=== PATIENT | female | born 1965 ===

== ENCOUNTER 2018-12-11 11:48 | Inpatient (IN) ==
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
[~2018-12-11 11:48] MED LIST: CEFAZOLIN 2000MG 2,000 MG/15 ML SYR IV SCH; LACTATED RINGER'S 1,000 ML IV SCH; LR 15ML/HR IV SCH
--- NOTE | 2018-12-11 12:52 | History & Physical Bridge Note ---
Date of Service December 11, 2018 History & Physical Bridge Note I have examined the patient, reviewed the History & Physical and in the interval since the performance of the History & Physical I have noted the following changes of clinical significance: lovenox stopped 24 hrs ago. no changes noted
[2018-12-11] MEDS ORDERED: DEXAMETHASONE SOD INJ 4 MG/ML VIAL ONE (14:10)
[2018-12-11] MEDS ORDERED: PROPOFOL IV EMULSION 10 MG/ML 20 ML VIAL IV ONE (14:10)
[2018-12-11] MEDS ORDERED: ONDANSETRON INJ 2 MG/ML 2 ML VIAL ONE (14:10)
[2018-12-11] MEDS ORDERED: LIDOCAINE HCL 2% 2 ML VIAL/AMP(20MG/ML) INFIL ONE (14:10)
[2018-12-11] MEDS ORDERED: fentaNYL citrate 100 MCG/2 ML VIAL ONE (14:11)
[2018-12-11] MEDS ORDERED: MIDAZOLAM HCL 1 MG/ML 2ML VIAL ONE (14:11)
[2018-12-11] MEDS ORDERED: LIDOCAINE HCL 1% 20 ML VIAL ONE (14:29)
[2018-12-11] MEDS ORDERED: BUPIVACAINE 0.5 % 5 MG/1 ML MPF 30ML VIAL ONE (14:30)
[2018-12-11] MEDS ORDERED: BACITRACIN INJ 50,000 UNIT VIAL ONE (14:30)
[2018-12-11] MEDS ORDERED: ePHEDrine sulfate 50 MG/ML AMP IV PRN (15:25)
[2018-12-11] MEDS ORDERED: ATROPINE SULFATE 0.1 MG/ML 10ML SYR IV PRN (15:25)
[2018-12-11] MEDS ORDERED: PROMETHAZINE HCL 12.5 MG in SODIUM CHLORIDE 0.9% 50 ML IV PRN (15:25)
[2018-12-11] MEDS ORDERED: HYDROmorphone INJ 2 MG/ML SYR/VIAL IV PRN (15:25)
[2018-12-11] MEDS ORDERED: COLLAGENASE OINT 30 GM TUBE EXT STA (16:29)
[2018-12-11] MEDS: fentaNYL citrate 100 MCG/2 ML VIAL IV PRN ×2 (16:57→17:02)
[2018-12-11] MEDS: ONDANSETRON INJ 2 MG/ML 2 ML VIAL IV PRN ×2 (16:57→17:09)
--- NOTE | 2018-12-11 16:59 | Operative Report ---
Post Operative Report Pre & Post Diagnosis Operation Date: 12/11/18 14:00 Pre-Op Diagnosis: Left Leg Wound Post-Op Diagnosis: Left Leg Wound I identified the patient and participated in the time-out.: Yes Procedure Operation Date: 12/11/18 14:00 Actual Procedures p Left Leg Irrigation and Debridement, Possible Wound Vac(Left) - Guero Nelson MD Surgeon Guero Nelson MD Interrelated Special Education Teacher Hemant Estimated Blood Loss 15 Findings Consistent with Post-Op Diagnosis Specimens None Complications none Disposition Accompanied Patient To Recovery: Yes Disposition: Recovery Room Description of Procedure Supine, standard prep and drape, Time out Left Leg Irrigation and Debridement, Wound Vac Please see Dr Nelson's op notes for specific details I was present throughout the case, assisted for splint application and transferred the patient to PACU in stable condition I attest to the content of the Intraoperative Record and any orders documented therein. Any exceptions are noted below.
[2018-12-11] MEDS ORDERED: HYDROmorphone INJ 1 MG/ML SYRINGE ONE (17:07)
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
--- NOTE | 2018-12-11 17:23 | Anesthesiology Progress Note ---
Date of Service December 11, 2018 Anesthesia Post Procedure Vital Signs Vital Signs: Temp Pulse Pulse Resp BP Pulse Ox 12/11/18 17:20 85 16 154/85 H 96 12/11/18 17:10 99 H 16 136/91 93 12/11/18 17:00 89 16 155/90 H 100 12/11/18 16:53 36.3 C L 100 H 20 140/107 H 100 12/11/18 12:32 36.7 C 84 20 122/70 98 Pain Intensity Left Foot: Pain Intensity: 5 Transfer of Care Handoff Completed per policy Notes Mental Status: alert / awake / arousable and participated in evaluation Patient Amnestic to Procedure: Yes Nausea / Vomiting: adequately controlled Pain: adequately controlled Airway Patency, RR, SpO2: stable & adequate BP & HR: stable & adequate Hydration State: stable & adequate Anesthetic Complications: no major complications apparent and Pt Satisfied with anesthetic care
[2018-12-11] MEDS ORDERED: DiphenhydrAMINE HCL 50 MG/ML VIAL IV PRN (17:44)
[2018-12-11] MEDS ORDERED: HYDROmorphone INJ 0.5 MG/0.5 ML SYR IV PRN (17:44)
[2018-12-11] MEDS ORDERED: METOCLOPRAMIDE HCL INJ 5 MG/ML 2 ML VIAL IV PRN (17:44)
[2018-12-11] MEDS ORDERED: MAGNESIUM HYDROXIDE SUSP 30 ML UDC PO PRN (17:44)
[2018-12-11] MEDS ORDERED: LORazepam 0.5 MG TAB PO PRN (17:44)
[2018-12-11] MEDS ORDERED: BISACODYL 10 MG SUPP PR PRN (17:44)
[2018-12-11] MEDS ORDERED: NALOXONE HCL 0.4 MG/1 ML VIAL/CARP IV PRN (17:44)
[2018-12-11] MEDS: SODIUM CHLORIDE 0.9% 1000ML 1,000 ML IV SCH (18:47)
[2018-12-11] MEDS: KETOROLAC 30 MG/ML VIAL IV PRN (18:47)
[2018-12-11] MEDS: OXYCODONE HCL IR 5 MG TAB (IMMEDIATE RELEASE) PO PRN ×2 (19:24→23:24)
[2018-12-11] MEDS: FLUTICASONE/SALMETEROL 100/50 (ADVAIR) 14 PUFF/1 INHALER INH SCH (20:49)
[2018-12-11] MEDS: ACETAMINOPHEN 500 MG TAB PO SCH (20:49)
[2018-12-11] MEDS: SENNA 8.6 MG TAB PO SCH (20:49)
[2018-12-11] MEDS: GABAPENTIN 300 MG CAP PO SCH (20:49)
[2018-12-11] MEDS: FERROUS SULFATE 325 MG TAB PO SCH (20:50)
[2018-12-11] MEDS: BACLOFEN 10 MG TAB PO SCH (20:50)
[2018-12-11] MEDS: DOCUSATE SODIUM 100 MG CAP PO SCH (20:50)
[2018-12-11] MEDS: NYSTATIN OINT 15 GM TUBE EXT SCH (20:50)
[2018-12-11] MEDS: TRAMADOL HCL 50 MG TABLET PO PRN (21:48)
[2018-12-11] MEDS: CEFAZOLIN 1000MG 1,000 MG/7.5 ML SYR IV SCH (21:56)
[2018-12-12] MEDS: TRAMADOL HCL 50 MG TABLET PO PRN ×2 (02:40→08:00)
[2018-12-12] MEDS: OXYCODONE HCL IR 5 MG TAB (IMMEDIATE RELEASE) PO PRN ×4 (04:32→23:55)
[2018-12-12] MEDS: CEFAZOLIN 1000MG 1,000 MG/7.5 ML SYR IV SCH (06:14)
[2018-12-12] MEDS: SODIUM CHLORIDE 0.9% 1000ML 1,000 ML IV SCH (06:23)
--- NOTE | 2018-12-12 08:12 | Anesthesiology Progress Note ---
Date of Service December 12, 2018 Anesthesia Post Procedure Vital Signs Vital Signs: Temp Pulse Pulse Resp BP Pulse Ox 12/12/18 07:52 122/74 12/12/18 07:50 36.8 C 75 16 104/61 95 12/12/18 02:37 36.8 C 86 14 108/68 95 12/11/18 23:17 36.7 C 82 14 115/73 96 12/11/18 21:30 36.5 C 78 17 107/68 98 12/11/18 18:42 36.7 C 74 18 137/83 96 12/11/18 18:19 87 15 128/83 99 12/11/18 17:53 36.8 C 88 16 159/89 H 98 12/11/18 17:30 36.4 C L 91 H 16 142/86 H 96 12/11/18 17:20 85 16 154/85 H 96 12/11/18 17:10 99 H 16 136/91 93 12/11/18 17:00 89 16 155/90 H 100 12/11/18 16:53 36.3 C L 100 H 20 140/107 H 100 12/11/18 12:32 36.7 C 84 20 122/70 98 Pain Intensity Left Foot: Pain Intensity: 5 Left Leg: Pain Intensity: 7 Notes Mental Status: alert / awake / arousable and participated in evaluation Nausea / Vomiting: adequately controlled Pain: adequately controlled Airway Patency, RR, SpO2: stable & adequate BP & HR: stable & adequate Hydration State: stable & adequate
[2018-12-12] MEDS: FLUTICASONE/SALMETEROL 100/50 (ADVAIR) 14 PUFF/1 INHALER INH SCH ×2 (09:17→20:35)
[2018-12-12] MEDS: DOCUSATE SODIUM 100 MG CAP PO SCH ×2 (09:18→20:36)
[2018-12-12] MEDS: GABAPENTIN 300 MG CAP PO SCH ×3 (09:19→20:36)
[2018-12-12] MEDS: MULTIVITAMIN TAB PO SCH (09:19)
[2018-12-12] MEDS: BACLOFEN 10 MG TAB PO SCH ×3 (09:19→20:36)
[2018-12-12] MEDS: FERROUS SULFATE 325 MG TAB PO SCH ×2 (09:19→20:36)
[2018-12-12] MEDS: LISINOPRIL 10 MG TAB PO SCH (09:20)
[2018-12-12] MEDS: ACETAMINOPHEN 500 MG TAB PO SCH ×3 (09:20→20:37)
[2018-12-12] MEDS: ENOXAPARIN INJ 30 MG/0.3 ML SYR SQ SCH ×2 (09:22→20:37)
[2018-12-12] MEDS: NYSTATIN OINT 15 GM TUBE EXT SCH ×3 (09:24→20:35)
--- NOTE | 2018-12-12 10:46 | Progress Note ---
DATE: 12/12/2018 She is resting comfortably in bed. Did not get much sleep. Otherwise, no significant complaint. She did have some itching of her face may be related to the narcotics and will make sure she has Benadryl. She did have a concern about her blood pressure medication. The lisinopril has been making her cough. We will consult medicine to see if they can recommend a different medicine to address her blood pressure without the side effect. The wound VAC dressing and splint all intact. Clean and dry. The VAC is overlying part of her dorsalis pedis and I cannot really feel it, but she has capillary refill less than 2 seconds in all toes. She cannot really extend her toes. She can dorsiflex her ankle slightly in the splint. She can plantarflex her toes and seems to have good strength there. Sensation is intact. IMPRESSION: 1. Vitamin D deficiency. 2. Left leg wound status post grade 3 open tibia fracture, tib-fib fracture. 3. Anemia. 4. History of tobacco use. PLAN: Findings discussed. Surgical results reviewed. Plan is for now to continue admission. Continue wound VAC with elevation. Keep all limbs moving. She may partial weightbear with walker for bathroom. Remove wound VAC on Monday. I will touch base with my colleagues at [facility] regarding her care. Continue Lovenox for DVT prophylaxis.
[2018-12-12] MEDS: ONDANSETRON INJ 2 MG/ML 2 ML VIAL IV PRN (10:49)
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
[2018-12-12] MEDS ORDERED: HydrALAZINE HCL 20 MG/ML VIAL IV PRN (11:30)
[2018-12-12] MEDS: KETOROLAC 30 MG/ML VIAL IV PRN ×2 (11:51→17:13)
[2018-12-12] MEDS: COLLAGENASE OINT 30 GM TUBE EXT SCH (15:15)
[2018-12-12] MEDS: SENNA 8.6 MG TAB PO SCH (20:36)
[2018-12-13] MEDS: OXYCODONE HCL IR 5 MG TAB (IMMEDIATE RELEASE) PO PRN ×2 (05:05→20:23)
[2018-12-13 05:36] LABS: Hematocrit (blood only) 30.8 % (37-47); Hemoglobin 9.7 g/dL (12.0-16.0); Mean Corpuscular Hemoglobin 30.9 pg (25-34); Mean Corpuscular Hgb Conc 31.5 g/dL (32-36); Mean Corpuscular Volume 98.1 fL (80-100); Mean Platelet Volume 10.6 fL (7.4-10.4); Platelet Count 262 K/uL (130-400); RDW Standard Deviation 53.6 fL (36.4-46.3); Red Blood Count 3.14 M/uL (4.2-5.4)
[2018-12-13] MEDS: TRAMADOL HCL 50 MG TABLET PO PRN (08:15)
[2018-12-13] MEDS: LISINOPRIL 10 MG TAB PO SCH (08:21)
[2018-12-13] MEDS: DOCUSATE SODIUM 100 MG CAP PO SCH ×2 (08:22→20:23)
[2018-12-13] MEDS: GABAPENTIN 300 MG CAP PO SCH ×3 (08:22→20:23)
[2018-12-13] MEDS: ACETAMINOPHEN 500 MG TAB PO SCH ×3 (08:22→20:24)
[2018-12-13] MEDS: FLUTICASONE/SALMETEROL 100/50 (ADVAIR) 14 PUFF/1 INHALER INH SCH ×2 (08:22→20:24)
[2018-12-13] MEDS: BACLOFEN 10 MG TAB PO SCH ×3 (08:22→20:24)
[2018-12-13] MEDS: MULTIVITAMIN TAB PO SCH (08:22)
[2018-12-13] MEDS: FERROUS SULFATE 325 MG TAB PO SCH ×2 (08:22→20:24)
[2018-12-13] MEDS: NYSTATIN OINT 15 GM TUBE EXT SCH ×3 (08:23→20:24)
[2018-12-13] MEDS: COLLAGENASE OINT 30 GM TUBE EXT SCH (08:23)
[2018-12-13] MEDS: ENOXAPARIN INJ 30 MG/0.3 ML SYR SQ SCH ×2 (08:23→20:25)
[2018-12-13] MEDS: ONDANSETRON INJ 2 MG/ML 2 ML VIAL IV PRN (09:03)
--- NOTE | 2018-12-13 13:29 | Hospitalist Progress Note ---
Date of Service December 13, 2018 Assessment & Plan (1) HTN (hypertension): Discontinued lisinopril as per patient wishes and does not appear to need this at least in the short term given inpatient blood pressures. Stopped on discharge tab. Agree with hydralazine if blood pressure temporarily high while admitted but suppose she will need this. Follow up with PCP for ongoing management. Post-op labs reviewed Hgb 11.5 -> 9.7 (without tachycardia or hypotension), not concerning. No further medical needs identified. Thank you for the consult. We will sign off at this time. (2) Moderate asthma: No current exacerbation. Continue Advair in replacement for Asmanex inhaler for maintenance. (3) Open fracture of tibia and fibula: (4) Wound, open, knee, lower leg, or ankle with tendon involvement: Subjective Admission here for left leg debridement by Dr Nelson from outpatient clinic after poor skin viability noted s/p IM nail placed for open tib/fib fracture at outside facility following POD#1 left leg debridement. Patient reports doing well after this operation. Pain well controlled. Review of Systems Review of Systems: All systems reviewed & are unremarkable except as noted in HPI & below Physical Exam Constitutional: WD/WN, vitals as above Eyes: + anicteric sclerae; normal pupil size ENMT: external ear and nose normal, oropharynx normal Neck: normal visual inspection and trachea midline Respiratory: normal respiratory effort, lungs clear to auscultation Cardiovascular: RRR, no murmur, no edema Gastrointestinal (Abdomen): Inspection/Auscultation: normal bowel sounds Percussion/Palpation: abdomen soft; abdomen nontender, no guarding and abdomen not rigid Musculoskeletal: Left leg in brace, elevated on foot stall, not assessed Skin: no rashes, warm and dry Neurologic: moves all extremities (left leg in brace not examined) and awake; no focal motor deficits Psychiatric: A+Ox3, euthymic affect Results & Data Vital Signs (Past 12 Hours) Vital Signs Temp Pulse Resp BP Pulse Ox 12/13/18 07:27 98.8 F 87 17 135/82 95 PG Care Time/CCT Total # of Minutes Spent Total Time Spent with Patient: Total time spent is greater than 50% in coordination of care (as documented) at patient's floor/unit and/or counseling patient: (1) Moderate asthma Asthma complication type: uncomplicated Asthma persistence: persistent Qualified Code(s): J45.40 - Moderate persistent asthma, uncomplicated (2) Open fracture of tibia and fibula Encounter type: sequela Laterality: left Open fracture type: open type III Qualified Code(s): S82.202S - Unspecified fracture of shaft of left tibia, sequela; S82.402S - Unspecified fracture of shaft of left fibula, sequela (3) Wound, open, knee, lower leg, or ankle with tendon involvement Encounter type: sequela Laterality: left Qualified Code(s): S81.002S - Unspecified open wound, left knee, sequela; S81.802S - Unspecified open wound, left lower leg, sequela; S91.002S - Unspecified open wound, left ankle, sequela; S86.802S - Unspecified injury of other muscle(s) and tendon(s) at lower leg level, left leg, sequela (4) HTN (hypertension) Hypertension type: essential hypertension Qualified Code(s): I10 - Essential (primary) hypertension
--- NOTE | 2018-12-13 17:07 | Orthopedic Progress Note ---
Date of Service December 13, 2018 Assessment & Plan (1) Wound, open, knee, lower leg, or ankle with tendon involvement: S/P IM rodding grade 3A open tib/fib fracture with open leg wound left lower extremity She may be out of bed, partial weight bearing left lower extremity with assistance of crutches or a walker or wheelchair. Ice and elevation as needed for pain/swelling. Allowed for ROM toes and ankle left foot Wounds vacs in placed LLE, functioning. Dressings changed today for application of Santyl on other open wounds not incorporated in the wound vac. Splint left leg on, recommend on at all times, to prevent further plantar contracture. Will plan for transfer to [facility] either later this afternoon or tomorrow morning, once bed available. Doctor to Doctor communication has been obtained. She's been accepted and is stable for transfer from ortho standpoint once bed available in [place]. Patient is aware and agrees with the plan. Accepting physician is Dr. Memo Vargas. Present on Admission?: Yes Subjective Patient sitting in bed, comfortable. Sister at bedside. Seems to be in good spirits. Physical Exam Physical Exam: Left leg wound vacs in place, functioning. Moves toes well. Has trouble with dorsiflexion of great toe and ankle, but she thinks it's positi oning in the splint. She states she's able to do the movements much better when splint is off. Toes warm, pulses intact. Dr. Nelson evaluated today. Results & Data Vital Signs (Past 12 Hours) Vital Signs Temp Pulse Resp BP Pulse Ox 12/13/18 15:30 36.6 C 85 18 131/77 95 12/13/18 07:27 37.1 C 87 17 135/82 95 (1) Wound, open, knee, lower leg, or ankle with tendon involvement Encounter type: sequela Laterality: left Qualified Code(s): S81.002S - Unspecified open wound, left knee, sequela; S81.802S - Unspecified open wound, left lower leg, sequela; S91.002S - Unspecified open wound, left ankle, sequela; S86.802S - Unspecified injury of other muscle(s) and tendon(s) at lower leg level, left leg, sequela
[2018-12-13] MEDS: SENNA 8.6 MG TAB PO SCH (20:25)
[2018-12-14 06:14] LABS: Creatinine Clr Calc Pharmacy 123.1 ml/min; Est GFR (African American) 134.5; Est GFR (Non-African American) 116.1
[2018-12-14] MEDS ORDERED: HYDROmorphone INJ 0.5 MG/0.5 ML SYR IV ONE (06:30)
--- NOTE | 2018-12-14 08:17 | Surgery Progress Note ---
Date of Service December 14, 2018 Assessment & Plan (1) Open fracture of tibia and fibula: Wounds have made significant progress over the last 72 hours. We will discontinue Santyl to the left lateral leg wounds due to drainage, will switch to Aquacel Ag. Plan discussed with regard to Veroflo VAC. Ortho has arranged transfer to [place] for evaluation of exposed bone. I am hesitant to discontinue Veroflo due to the substantial gains these wounds have made in the last 2 to 3 days. WOCNs will replace irrigating VAC for now. If transfer can be arranged to maintain VAC en route, this would be preferable. If not, VAC will be removed later this afternoon in anticipation of transfer. If plan after evaluation is to continue the VAC, patient may follow up with me at the wound center. (2) Wound, open, knee, lower leg, or ankle with tendon involvement: Subjective Patient seen in at bedside in follow-up with Dr. Nelson, Bruce Reyes and Gianna. Postoperative day 3 status post debridement of multiple left lower extremity wounds in the operating room, followed by placement of Veraflo wound vacs. She is doing well, rates pain at 4 out of 10, offers no complaints today. Review of Systems Integumentary: as per Subjective / HPI Physical Exam Constitutional: WD/WN, vitals as above Skin: no rashes, warm and dry + wound (Left lower extremity) Left lower extremity: 6 wounds in total. See WOCN documentation for formal measurements. 3 wounds of lateral left lower leg, all superficial, with 100% granulation, approximately 2 cm in size. Some bright green drainage on dressing, but wounds appear clean, no odor, no clinical sign of infections Left dorsal foot wound, approximately 3 cm, greatest depth 0.3 cm, nearly 100% granulated without exposed structures Left anterior lower leg wound, approximately 12 x 2 cm, good granulation tissue developing, area of exposed bone has decreased by approximately 50%, there is no tunneling or pocketing of the wound Left posterior ankle wound with good granulation, decreased in size since debridement in the OR, with significant decrease in area of exposed tendon Psychiatric: A+Ox3, euthymic affect Results & Data Vital Signs (Past 12 Hours) Vital Signs Temp Pulse Resp BP Pulse Ox 12/14/18 07:00 98.1 F 79 17 124/76 96 12/13/18 23:20 98.4 F 91 H 16 118/73 97 Laboratory Tests 12/13/18 04:50 WBC 5.80 Hgb 9.7 L PG Care Time/CCT Total # of Minutes Spent Total Time Spent with Patient: Total time spent is greater than 50% in coordination of care (as documented) at patient's floor/unit and/or counseling patient: (1) Wound, open, knee, lower leg, or ankle with tendon involvement Encounter type: sequela Laterality: left Qualified Code(s): S81.002S - Unspecified open wound, left knee, sequela; S81.802S - Unspecified open wound, left lower leg, sequela; S91.002S - Unspecified open wound, left ankle, sequela; S86.802S - Unspecified injury of other muscle(s) and tendon(s) at lower leg level, left leg, sequela (2) Open fracture of tibia and fibula Encounter type: sequela Open fracture type: open type III Laterality: left Qualified Code(s): S82.202S - Unspecified fracture of shaft of left tibia, sequela; S82.402S - Unspecified fracture of shaft of left fibula, sequela
[2018-12-14] MEDS: FLUTICASONE/SALMETEROL 100/50 (ADVAIR) 14 PUFF/1 INHALER INH SCH (08:59)
[2018-12-14] MEDS: NYSTATIN OINT 15 GM TUBE EXT SCH (08:59)
[2018-12-14] MEDS: ACETAMINOPHEN 500 MG TAB PO SCH (09:00)
[2018-12-14] MEDS: DOCUSATE SODIUM 100 MG CAP PO SCH (09:00)
[2018-12-14] MEDS: ENOXAPARIN INJ 30 MG/0.3 ML SYR SQ SCH (09:00)
[2018-12-14] MEDS: MULTIVITAMIN TAB PO SCH (09:00)
[2018-12-14] MEDS: GABAPENTIN 300 MG CAP PO SCH (09:00)
[2018-12-14] MEDS: BACLOFEN 10 MG TAB PO SCH (09:00)
[2018-12-14] MEDS: FERROUS SULFATE 325 MG TAB PO SCH (09:00)
[2018-12-14] MEDS: COLLAGENASE OINT 30 GM TUBE EXT SCH (09:01)
[2018-12-14] MEDS: OXYCODONE HCL IR 5 MG TAB (IMMEDIATE RELEASE) PO PRN (10:50)
--- NOTE | 2018-12-14 19:56 | Progress Note ---
DATE: 12/14/2018 The patient was seen this morning with plastic surgery and wound care. Wound VAC was removed and she has excellent granulation, still some exposed bone anteromedially. Plan is to continue the wound VAC and anticipate transfer to [place] sometime today.
[2018-12-17] MEDS ORDERED: ERGOCALCIFEROL 50,000 UNITS CAP PO SCH (09:00)
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
== END 2018-12-14 12:29 | disposition short-term general hospital (02) | DRG 464 ==
LOC: ASU 11:48 → 3E 16:46